=== PATIENT | female | born 1985 | race Caucasian/White ===

== ENCOUNTER 2016-07-04 19:58 | Emergency (ER) | payer OTHER ==
[~2016-07-04] VITALS: Ht 157.5 cm; Wt 68.9 kg
[2016-07-04 20:00] VITALS: BP 114/76; PULSE 66; RESP 16; TEMP 98.3; O2SAT 100
[2016-07-04] MEDS ORDERED: ETON1IMP I-DERMAL (20:14)
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
[2016-07-04] MEDS ORDERED: ULTR50TA5 PO (21:22)
[2016-07-04] MEDS ORDERED: MOBI15TA PO (21:22)
[2016-07-04 21:39] VITALS: BP 112/76; PULSE 74; RESP 18; O2SAT 98
== END 2016-07-04 21:42 | disposition home or self-care (01) ==
LOC: PHED 19:58
DX: S09.90XA Unspecified injury of head, initial encounter (principal); S10.93XA Contusion of unspecified part of neck, initial encounter; W22.8XXA Striking against or struck by other objects, initial encounter
CPT/HCPCS: 70450; 72125